=== PATIENT | male | born 1985 | race Caucasian/White ===

== ENCOUNTER 2018-03-04 20:23 | Emergency (ER) | payer BC, MEDICAID ==
[2018-03-04 21:11] VITALS: BP 135/81
--- NOTE | 2018-03-04 21:28 | UC ---
Throat Pain/Nasal Giancarlo HPI - HPI Summary HPI Summary: 32 y/o male presents to the urgent care c/o sore throat and swollen neck lymph nodes for the past 2 days. Pt also states he has a red painful lesion in the roof of his mouth. Pain w/ swallowing is 5/10. He has not taking anything to alleviate symptoms. Pt denies fever, cough SOB, chest pain, abdominal pain, N/V /D - History of Current Complaint Chief Complaint: UCRespiratory Stated Complaint: SORE THROAT Time Seen by Provider: 03/04/18 21:26 Hx Obtained From: Patient Onset/Duration: Gradual Onset, Lasting Days - 1 day, Still Present, Worse Since - today Severity: Moderate Pain Intensity: 5 Pain Scale Used: 0-10 Numeric Cough: None Associated Signs & Symptoms: Positive: Dysphagia. Negative: Nasal Discharge, Fever - Epiglottits Risk Factors Epiglottis Risk Factors: Negative - Allergies/Home Medications Allergies/Adverse Reactions: Allergies Allergy/AdvReac Type Severity Reaction Status Date / Time [place] TEA Allergy "MAKES MY Uncoded 03/04/18 21:11 MOUTH ITCHY" Home Medications: Home Medications Cetirizine* [ZyrTEC 10 MG TAB*] 10 mg PO DAILY 03/04/18 [History Confirmed 03/04] PMH/Surg Hx/FS Hx/Imm Hx Previously Healthy: Yes - Pt denies PMHX - Surgical History Surgical History: None - Family History Known Family History: Positive: None - Pt denies FMHX - Social History Occupation: Employed Full-time Lives: With Family Alcohol Use: Occasionally Substance Use Type: None Smoking Status (MU): Never Smoked Tobacco Review of Systems Constitutional: Negative Skin: Negative Eyes: Negative ENT: Sore Throat, Other - mouth ulcer in palalte Respiratory: Negative Cardiovascular: Negative Gastrointestinal: Negative Genitourinary: Negative Motor: Negative Neurovascular: Negative Musculoskeletal: Negative Neurological: Negative Psychological: Negative Is Patient Immunocompromised?: No All Other Systems Reviewed And Are Negative: Yes Physical Exam - Summary Physical Exam Summary: VITAL SIGNS: Reviewed. GENERAL: Patient is a well developed and nourished male who is sitting comfortable in the examining table. Patient is not in any acute respiratory distress. HEAD AND FACE: No signs of trauma. No ecchymosis, hematomas or skull depressions. No sinus tenderness. EYES: PERRLA, EOMI x 2, No injected conjunctiva, no nystagmus. No photophobia. EARS: Hearing grossly intact. Ear canals and tympanic membranes are within normal limits. MOUTH: Positive pharynx with erythema, exudates, palatal petechiae. B/L tonsillar enlargement with exudate. Uvula in midline. left side of posterior palate w/ an aphthous ulcer. NECK: Supple, trachea is midline, Positive anterior cervical lymphadenopathy, no JVD, no carotid bruit, no c-spine tenderness, neck with full ROM. No meningeal signs, no Kernig's or brudzinskis signs. CHEST: Symmetric, no tenderness at palpation LUNGS: Clear to auscultation bilaterally. No wheezing or crackles. CVS: Regular rate and rhythm, S1 and S2 present, no murmurs or gallops appreciated. ABDOMEN: Soft, non-tender. No signs of distention. No rebound no guarding, and no masses palpated. Bowel sounds are normal. EXTREMITIES: FROM in all major joints, no edema, no cyanosis or clubbing. NEURO: Alert and oriented x 3. No acute neurological deficits. Speech is normal and follows commands. SKIN: Dry and warm Triage Information Reviewed: Yes Vital Signs: Initial Vital Signs Temp 98 F 03/04/18 21:08 Pulse 71 03/04/18 21:08 Resp 16 03/04/18 21:08 BP 135/81 03/04/18 21:08 Pulse Ox 100 03/04/18 21:08 Throat Pain/Nasal Course/Dx - Course Course Of Treatment: 32 y/o male presents to the urgent care c/o sore throat and swollen neck lymph nodes for the past 2 days. Pt also states he has a red painful lesion in the roof of his mouth. Pain w/ swallowing is 5/10. He has not taking anything to alleviate symptoms. Pt denies fever, cough SOB, chest pain, abdominal pain, N/V/D. Hx obtained.Pt w/ pharyngitis on examination and an aphthous ulcer on palate on examination. Rapid strep ordered, result: negative. Viral pharyngitis.Pt Rx ibuprofen PO to alleviates symptoms of pain and swelling. Pt givne first dose of Ibuprofe PO and viscous lidocaine to alleviate symptoms. Pt Advised on hand washing to avoid spreading. Pt advised to rest, eat well and avoid strenuous exercise. If symptoms do not improve or worsen advised to return to the urgent care or f/u with her PCP for further evaluation and treatment. Pt understood and agreed - Differential Dx/Diagnosis Differential Diagnosis/HQI/PQRI: Influenza, Laryngitis, Mononucleosis, Pharyngitis, Tonsillitis Provider Diagnoses: 1- Viral Pharyngitis. 2- aphthous ulcer Discharge - Sign-Out/Discharge Documenting (check all that apply): Patient Departure - D/C home - Discharge Plan Condition: Stable Disposition: HOME Prescriptions: Ibuprofen TAB* [Motrin TAB* 800 MG] 800 mg PO Q6H PRN #30 tab PRN Reason: Sore Throat Patient Education Materials: Pharyngitis (ED) Referrals: Tevin Malik MD [Primary Care Provider] - 3 Days Additional Instructions: 1-Please take ibuprofen PO q6-8hrs prn as instructed after meals to alleviate pain and swelling. Increase fluid intake, eat well, rest and avoid strenuous exercise 2-If symptoms do not improve or worsen please return to the urgent care or f/u with your PCP for further evaluation and treatment. - Billing Disposition and Condition Condition: STABLE Disposition: Home
[2018-03-04] MEDS ORDERED: Lidocaine 2% VISCOUS* 15 ML UDC SWISH SPIT ONE (22:03)
[2018-03-04] MEDS ORDERED: Ibuprofen TAB* 400 MG PO ONE (22:04)
== END 2018-03-04 22:19 | disposition home or self-care (01) ==
LOC: UCEAST 20:23
DX: J02.8 Acute pharyngitis due to other specified organisms (principal); K12.0 Recurrent oral aphthae
CPT/HCPCS: 87651; 99212; A9270-GY; G0463